=== PATIENT | male | born 1945 | race Two or more races ===

== ENCOUNTER 2016-06-05 09:23 | Inpatient (IN) | payer OTHER, MEDICAID ==
[~2016-06-05] VITALS: Ht 162.6 cm; Wt 54.4 kg
[~2016-06-05 09:23] MED LIST: ACETAZOLAMIDE250 MG ORAL; ADVAIR 250-501 EACH INH; DALIRESP500 MCG PO; DILTIAZEM 24HR120 M1 ORAL; LORATADINE10 M2 PO; MEGACE40 MG PO; PROAIR HFA8.5 GM INH; RANITIDINE HCL150 M2 PO; SPIRIVA18 MCG INH
[2016-06-05] MEDS ORDERED: Solu-MEDROL 125mg Inj IVP ONE (09:30)
[2016-06-05 09:34] VITALS: BP 141/85
[2016-06-05] MEDS: Ipratropium 0.02% Inh Soln 2.5ml UD HHN SCH ×3 (09:40→10:00)
[2016-06-05] MEDS: Albuterol ud Inhalation HHN SCH ×3 (09:40→10:00)
[2016-06-05 10:01] LABS: BASOPHILS % (AUTO) 1.1 % (0.0-2.0); EOSINOPHILS % (AUTO) 4.1 % (0.0-3.0); LYMPHOCYTES % (AUTO) 30.2 % (20.0-45.0); MEAN CORPUSCULAR HEMOGLOBIN 27.8 PG (27.0-31.0); MEAN CORPUSCULAR HGB CONC 31.4 G/DL (32.0-36.0); MEAN CORPUSCULAR VOLUME 89 FL (80-99); MEAN PLATELET VOLUME 8.3 FL (6.5-10.1); MONOCYTES % (AUTO) 6.9 % (1.0-10.0); NEUTROPHILS % (AUTO) 57.7 % (45.0-75.0); PLATELET COUNT 374 K/UL (150-450); RED CELL DISTRIBUTION WIDTH 13.6 % (11.6-14.8); WHITE BLOOD COUNT 11.3 K/UL (4.8-10.8)
[2016-06-05 10:14] LABS: ALANINE AMINOTRANSFERASE 17 U/L (3-41); ALBUMIN/GLOBULIN RATIO 1.3 (1.0-2.7); ANION GAP 17 (5-15); ASPARTATE AMINO TRANSFERASE 18 U/L (5-40); CALCIUM 9.7 mg/dL (8.6-10.2); CARBON DIOXIDE 25 mEQ/L (20-30); CHLORIDE 100 mEQ/L (98-107); CREATININE 0.8 mg/dL (0.7-1.2); HEMOLYSIS 4; POTASSIUM 3.9 mEQ/L (3.4-4.9); SODIUM 142 mEQ/L (135-145); TOTAL PROTEIN 7.7 g/dL (6.6-8.7)
[2016-06-05 10:14] LABS: ABG ALLEN TEST POSITIVE; ABG BASE EXCESS -6.9; ABG PCO2 47.8 mmHg (35.0-45.0)
--- NOTE | 2016-06-05 10:22 | Diagnostic Imaging Report ---
Indication: Dyspnea Comparison: None A single view chest radiograph was obtained. Findings: Lungs are hyperexpanded. There is no infiltrate. Heart size normal. Bones are slightly osteopenic. Impression: COPD
[2016-06-05 10:29] VITALS: BP 164/82
[2016-06-05 10:35] LABS: TROPONIN I < 0.30 ng/mL (<=0.30)
[2016-06-05 10:45] LABS: CKMB 3.7 ng/mL (< 6.7)
[2016-06-05] MEDS ORDERED: Azithromycin 500 MG in NS 275 ML IV ONE (11:00)
[2016-06-05] MEDS ORDERED: Cefepime HCl 1 GM in NS 55 ML IV ONE (11:00)
[2016-06-05] MEDS ORDERED: Azithromycin Inj IV ONE (11:06)
[2016-06-05] MEDS ORDERED: Tubing IV Cassette IV ONE (11:07)
[2016-06-05] MEDS ORDERED: NS 275 ML ONE (11:07)
[2016-06-05] MEDS ORDERED: Cefepime 1gm vial ONE (11:07)
[2016-06-05] MEDS ORDERED: NS 55 ML IV ONE (11:07)
[2016-06-05 12:00] VITALS: BP 133/74
--- NOTE | 2016-06-05 13:26 | Emergency Room Report ---
History of Present Illness General Chief Complaint: Dyspnea/Respdistress Source: Patient, Family Member, EMS Present Illness HPI 70-year-old male presents to ED for shortness of breath. Per EMS patient had worsening shortness of breath today. Patient has history of COPD and lung cancer. Patient was saturating in the ED some remainder. Given breathing treatments. Upon arrival EMS states that patient is improved but however still retracting and wheezing. Patient states he's been intubated in the past. Denies any chest pain. Denies fevers or chills. No other aggravating or relieving factors. Denies any other associated symptom Allergies: Coded Allergies: No Known Allergies (Unverified , 06/05/16) Patient History Past Medical History: asthma Past Surgical History: none Pertinent Family History: none Social History: Denies: alcohol use, drug use, smoking Immunizations: UTD Reviewed Nursing Documentation: PMH: Agreed, PSxH: Agreed Nursing Documentation-PMH Past Medical History: No History, Except For Hx Cardiac Problems: No Hx Asthma: Yes Hx Cancer: No Hx Gastrointestinal Problems: No Hx Neurological Problems: No Review of Systems All Other Systems: negative except mentioned in HPI Physical Exam Vital Signs Date Time Temp Pulse Resp B/P Pulse Ox O2 Delivery O2 Flow Rate FiO2 06/05/16 09:16 97.9 106 35 154/88 100 Simple Mask 8.0 06/05/16 09:25 100 Sp02 EP Interpretation: reviewed, normal General Appearance: GCS 15, cachetic, thin Head: normocephalic Eyes: bilateral eye PERRL, bilateral eye normal inspection ENT: hearing grossly normal, normal pharynx, no angioedema, normal voice Neck: full range of motion, supple/symm/no masses Respiratory: respiratory distress, accessory muscle use, crackles, wheezing Cardiovascular #1: regular rate, rhythm, no edema Gastrointestinal: normal inspection Rectal: deferred Genitourinary: no CVA tenderness Musculoskeletal: normal inspection Neurologic: alert, oriented x3, responsive, motor strength/tone normal, sensory intact, speech normal Psychiatric: normal inspection Skin: normal inspection Lymphatic: normal inspection Procedures Critical Care Time Critical Care Time i. I feel this is a highly complex case requiring extensive working including EKG/Rhythm strip, Xray/CT/US, Blood/urine lab work, repeat exams while in ED, and administration of strong opiates/narcotics for pain control, admission to hospital or close patient follow up. Total time: 30 min bedside evaluation and treatment excludes procedures (EKG). Reason for critical care: Respiratory distress, hypoxic, wheezing Possible complications: hypotension, hypertension, PA, shock, arrhythmias, metabolic acidosis, end organ damage, respiratory failure. Interventions: Labs, IV fluids, EKG, chest x-ray, nebulizer treatment, BiPAP, steroids, antibiotics Course: Patient brought in respiratory distress. Hypoxia, remainder. History of COPD and lung cancer. Intubated in the past. Started on BiPAP with symptoms slowly improving. Labs show respiratory acidosis. Troponins okay, lactate okay. Antibiotics given. Consultations: nursing staff, EMS, family Performed by: Dr Serra Tolerated well condition = serious j. because of unstable vital signs this patient had a condition that could potentially threaten life or limb. I feel this is a critical patient who required my full attention while patient was considered critical. Total Critical Care Time excluding procedures was greater than 35 minutes Medical Decision Making Diagnostic Impression: Primary Impression: Respiratory distress Additional Impression: COPD exacerbation ER Course Hospital Course 70-year-old M presenting to ED with SOB. h/o COPD Differential diagnoses include: Pneumonia, CHF exacerbation, pneumothorax, fluid overload Clinical course Patient placed on stretcher. On signal helper with stable vitals. After initial history and physical, I ordered nebulizer treatments, BIPAP. I ordered labs, IV fluids, EKG, chest x-ray, blood cultures, UA. Labs - noted leukocytosis, hemoglobin/hematocrit stable, electrolytes okay, lactate okay, troponins negative ABG - acidosis, hypercapnia CXR - hyperinflated lungs. no infiltrates abx given Case discussed with Dr. Alexander (covering for [facility]) and he agreed to the patient to his service for further care and support I feel this is a highly complex case requiring extensive working including EKG/ Rhythm strip, Xray/CT/US, Blood/urine lab work, repeat exams while in ED, and administration of strong opiates/narcotics for pain control, admission to hospital or close patient follow up. Diagnosis - COPD exacerbation, respiratory distress Patient admitted to [facility] in serious condition Labs Test 06/05/16 09:27 06/05/16 09:55 White Blood Count 11.3 K/UL (4.8-10.8) Red Blood Count 5.50 M/UL (4.70-6.10) Hemoglobin 15.3 G/DL (14.2-18.0) Hematocrit 48.6 % (42.0-52.0) Mean Corpuscular Volume 89 FL (80-99) Mean Corpuscular Hemoglobin 27.8 PG (27.0-31.0) Mean Corpuscular Hemoglobin Concent 31.4 G/DL (32.0-36.0) Red Cell Distribution Width 13.6 % (11.6-14.8) Platelet Count 374 K/UL (150-450) Mean Platelet Volume 8.3 FL (6.5-10.1) Neutrophils (%) (Auto) 57.7 % (45.0-75.0) Lymphocytes (%) (Auto) 30.2 % (20.0-45.0) Monocytes (%) (Auto) 6.9 % (1.0-10.0) Eosinophils (%) (Auto) 4.1 % (0.0-3.0) Basophils (%) (Auto) 1.1 % (0.0-2.0) Sodium Level 142 mEQ/L (135-145) Potassium Level 3.9 mEQ/L (3.4-4.9) Chloride Level 100 mEQ/L (98-107) Carbon Dioxide Level 25 mEQ/L (20-30) Anion Gap 17 (5-15) Blood Urea Nitrogen 14 mg/dL (7-23) Creatinine 0.8 mg/dL (0.7-1.2) Estimat Glomerular Filtration Rate mL/min (>60) Glucose Level 110 mg/dL (74-106) Lactic Acid Level 0.90 mmol/L (0.66-2.22) Calcium Level 9.7 mg/dL (8.6-10.2) Total Bilirubin 0.4 mg/dL (0.0-1.2) Aspartate Amino Transf (AST/SGOT) 18 U/L (5-40) Alanine Aminotransferase (ALT/SGPT) 17 U/L (3-41) Alkaline Phosphatase 121 U/L (40-129) Total Creatine Kinase 68 U/L (38-174) Creatine Kinase MB 3.7 ng/mL (< 6.7) Creatine Kinase MB Relative Index 5.4 Troponin I < 0.30 ng/mL (<=0.30) Pro-B-Type Natriuretic Peptide 57 pg/mL (0-125) Total Protein 7.7 g/dL (6.6-8.7) Albumin 4.4 g/dL (3.5-5.2) Globulin 3.3 g/dL Albumin/Globulin Ratio 1.3 (1.0-2.7) Arterial Blood pH 7.248 (7.350-7.450) Arterial Blood Partial Pressure CO2 47.8 mmHg (35.0-45.0) Arterial Blood Partial Pressure O2 571.6 mmHg (75.0-100.0) Arterial Blood HCO3 20.4 mmol/L (22.0-26.0) Arterial Blood Oxygen Saturation 99.6 % (92.0-98.0) Arterial Blood Base Excess -6.9 Mike Test Positive EKG Diagnostic Results Rate: tachycardiac Rhythm: NSR ST Segments: no acute changes ASA given to the pt in ED: No Rhythm Strip Diag. Results EP Interpretation: yes Rhythm: NSR, no PVC's, no ectopy Chest X-Ray Diagnostic Results EP Interpretation: No Findings: no consolidation, no effusion, no pneumothorax, no acute cardiopulmonary disease, other - hyperinflated lungs. copd Number of Views: 1 Last Vital Signs Date Time Temp Pulse Resp B/P Pulse Ox O2 Delivery O2 Flow Rate FiO2 06/05/16 12:00 97.3 105 19 133/74 96 Room Air 06/05/16 11:20 8.0 30 Status: improved Disposition: ADMITTED INPATIENT Condition: Serious Referrals: NON PHYSICIAN (PCP) АННА SERRA M.D. Jun 05, 2016 13:26
[2016-06-05 16:00] VITALS: BP 126/70
[2016-06-05] MEDS ORDERED: Milk of Magnesia 30ml Ud ORAL PRN (16:45)
[2016-06-05] MEDS ORDERED: Albuterol 90mcg Inhaler 8gm INH PRN (17:18)
[2016-06-05 17:38] LABS: ABG ALLEN TEST POSITIVE; ABG PCO2 43.2 mmHg (35.0-45.0)
[2016-06-05] MEDS ORDERED: NovoLOG Insulin Flexpen SUBQ SCH (18:00)
[2016-06-05] MEDS: cefTRIAXone 1 GM in D5W 55 ML IVPB SCH (18:32)
[2016-06-05 19:00] VITALS: BP 145/89
[2016-06-05] MEDS: Advair 250/50 Inhaler - 14 dose INH SCH (21:00)
[2016-06-05] MEDS: Solu-MEDROL 40mg Inj IVP SCH (22:08)
[2016-06-06] VITALS: BP 118/64
--- NOTE | 2016-06-06 00:38 | History and Physical Report ---
DATE OF ADMISSION: 06/05/2016 CHIEF COMPLAINT AND REASON FOR HOSPITALIZATION: The patient admitted with shortness of breath, weakness, and neck pain. HISTORY OF PRESENT ILLNESS: The patient has chronic obstructive pulmonary disease and a history of lung cancer. Lung cancer was diagnosed apparently in [facility] and he has received some chemotherapy. The patient is complaining of neck pain, came to the emergency room, note to be quite dyspneic and required nebulizer treatment and initial BiPAP in the emergency room and subsequently transferred to the telemetry unit due to his hypoxemia and dyspnea. The patient is thin and weak. He now states his breathing has improved and close to baseline and is complaining of neck pain. PAST SURGICAL HISTORY: He had a left neck mass and some kind of tumor in February of 1995 without recurrence. He has had apparently lung biopsy. ALLERGIES: None known. MEDICATIONS: Proventil inhaler as needed, Advair one puff twice a day, diltiazem 120 mg daily, loratadine 10 mg daily, ranitidine 150 daily, Daliresp 500 mg daily, Megace 40 mg daily, and acetazolamide 125 mg daily. HABITS: He smoked, quit more than 20 years ago. No alcohol or drugs. SOCIAL HISTORY: He is single. Apparently lives alone. SYSTEM REVIEW: HEENT: Head, eyes, ears, nose, and throat, vision and hearing is good. ENDOCRINE: No known diabetes or thyroid disease. PULMONARY: History of chronic obstructive pulmonary disease. CARDIAC: Denies angina or [place]. GI: No nausea, vomiting, or abdominal pain. GENITOURINARY: No dysuria, hematuria, or kidney stones. NEUROLOGIC: No CVA, syncope, or seizures. Code status is No Code. PHYSICAL EXAMINATION: GENERAL: The patient is seen after he is from BiPAP. He is alert and oriented. He is very thin and chronically ill appearing. VITAL SIGNS: Temperature 98.4, pulse 100, respirations 20, blood pressure 145/89, and pulse oximetry is 95% on room air. HEENT: Head, eyes, ears, nose, and throat, clear. Ocular motions intact in all directions. Oral mucosa is moist. NECK: There are scars from prior surgery in the left submandibular and left anterior cervical area without any masses. LUNGS: Distant breath sounds. Few faint rhonchi. HEART: Regular rhythm. Tachycardic. No murmur. ABDOMEN: Soft. No organomegaly. EXTREMITIES: No edema, cyanosis, or clubbing. There is some muscle atrophy, generalized. NEUROLOGIC: Alert and oriented. Cranial nerves are intact. IMPRESSION: 1. Chronic obstructive pulmonary disease with acute exacerbation. 2. History of lung cancer, status post chemotherapy. Chest x-ray shows hyperexpanded lungs, no infiltrate, heart size is normal. 3. Neck pain. He has good range of motion. been fairly comfortable at this time. PLAN: The patient was on steroids, empiric antibiotics, respiratory therapy, comfort measures. We will try to keep him off BiPAP if able. Watch him closely if he has any comorbidities. Helio Alexander M.D. DR: GENESIS JOB#: [id number] CC:
[2016-06-06 04:00] VITALS: BP 125/73
[2016-06-06] MEDS: NovoLOG Insulin Flexpen SUBQ SCH ×4 (05:38→20:46)
[2016-06-06] MEDS: Solu-MEDROL 40mg Inj IVP SCH ×3 (05:38→21:37)
[2016-06-06 08:00] VITALS: BP 142/72
[2016-06-06] MEDS: Advair 250/50 Inhaler - 14 dose INH SCH ×2 (09:46→21:00)
[2016-06-06] MEDS: Diltiazem CD 120mg cap ORAL SCH (09:47)
[2016-06-06] MEDS: Azithromycin 250mg tab ORAL SCH (09:47)
[2016-06-06] MEDS: acetaZOLAMIDE 125mg tab ORAL SCH (09:47)
[2016-06-06] MEDS: Heparin 5000 units/ml inj SUBQ SCH ×2 (09:49→20:46)
[2016-06-06] MEDS ORDERED: NovoLOG Insulin Flexpen SUBQ SCH ×2 (11:30→18:00)
[2016-06-06 12:00] VITALS: BP 122/69
--- NOTE | 2016-06-06 15:40 | Consultation ---
Consult Note Consult Note DATE OF CONSULTATION: 06/06/2016 REASON FOR CONSULTATION: Shortness of breath. HISTORY OF PRESENT ILLNESS: The patient has chronic obstructive pulmonary disease and a history of lung cancer. Lung cancer was diagnosed apparently in [facility] and he has received some chemotherapy. The patient is complaining of neck pain, came to the emergency room, note to be quite dyspneic and required nebulizer treatment and initial BiPAP in the emergency room and subsequently transferred to the telemetry unit due to his hypoxemia and dyspnea. The patient is thin and weak. He now states his breathing has improved and close to baseline and is complaining of neck pain. PAST SURGICAL HISTORY: He had a left neck mass . He has had apparently lung biopsy. ALLERGIES: None known. MEDICATIONS: Proventil inhaler as needed, Advair one puff twice a day, diltiazem 120 mg daily, loratadine 10 mg daily, ranitidine 150 daily, Daliresp 500 mg daily, Megace 40 mg daily, and acetazolamide 125 mg daily. HABITS: He smoked, quit more than 20 years ago. No alcohol or drugs. SOCIAL HISTORY: He is single. Apparently lives alone. SYSTEM REVIEW: HEENT: Head, eyes, ears, nose, and throat, vision and hearing is good. ENDOCRINE: No known diabetes or thyroid disease. PULMONARY: History of chronic obstructive pulmonary disease. CARDIAC: Denies angina or PR. GI: No nausea, vomiting, or abdominal pain. GENITOURINARY: No dysuria, hematuria, or kidney stones. NEUROLOGIC: No CVA, syncope, or seizures. Code status is No Code. PHYSICAL EXAMINATION: GENERAL: He is alert and oriented. He is very thin and chronically ill appearing. VITAL SIGNS: Temperature 98.4, pulse 100, respirations 20, blood pressure 145/89, and pulse oximetry is 95% on room air. HEENT: Head, eyes, ears, nose, and throat, clear. Ocular motions intact in all directions. Oral mucosa is moist. NECK: There are scars from prior surgery in the left submandibular and left anterior cervical area without any masses. LUNGS: Distant breath sounds. Few faint rhonchi. HEART: Regular rhythm. Tachycardic. No murmur. ABDOMEN: Soft. No organomegaly. EXTREMITIES: No edema, cyanosis, or clubbing. There is some muscle atrophy, generalized. NEUROLOGIC: Alert and oriented. Cranial nerves are intact. Assessment/Plan IMPRESSION: 1. Chronic obstructive pulmonary disease with acute exacerbation. 2. History of lung cancer, status post chemotherapy. Chest x-ray shows hyperexpanded lungs, no infiltrate, heart size is normal. 3. Neck pain. He has good range of motion. PLAN: The patient is on steroids, empiric antibiotics, respiratory therapy, comfort measures. Likely dc home on steroids (5mg prednisone) albuterol and pain medications Chase Dunham M.D., MD Jun 06, 2016 15:39
[2016-06-06 16:00] VITALS: BP 128/73
[2016-06-06] MEDS: cefTRIAXone 1 GM in D5W 55 ML IVPB SCH (17:30)
--- NOTE | 2016-06-06 17:34 | General Progress Note ---
Assessment/Plan Problem List: (1) Pinched nerve in neck ICD Codes: G58.8 - Other specified mononeuropathies SNOMED: 52386240 (2) Lung cancer ICD Codes: C34.90 - Malignant neoplasm of unspecified part of unspecified bronchus or lung SNOMED: 194851794 (3) COPD exacerbation ICD Codes: J44.1 - Chronic obstructive pulmonary disease with (acute) exacerbation SNOMED: 329274083, 087627347 (4) Respiratory distress ICD Codes: R06.00 - Dyspnea, unspecified SNOMED: 334610631 Assessment/Plan continue steroids hhn comfort measures. Too weak to go home today Subjective Constitutional: Reports: weakness HEENT: Reports: no symptoms Cardiovascular: Reports: no symptoms Respiratory: Reports: cough, shortness of breath Gastrointestinal/Abdominal: Reports: no symptoms Genitourinary: Reports: no symptoms Neurologic/Psychiatric: Reports: no symptoms Endocrine: Reports: no symptoms Hematologic/Lymphatic: Reports: no symptoms Allergies: Coded Allergies: No Known Allergies (Unverified , 06/05/16) Subjective mild neck pain Objective Last 24 Hour Vital Signs Date Time Temp Pulse Resp B/P Pulse Ox O2 Delivery O2 Flow Rate FiO2 06/06/16 16:00 97.9 98 18 128/73 95 Room Air 06/06/16 12:00 97.8 101 18 122/69 97 Room Air 06/06/16 09:48 103 20 97 Room Air 06/06/16 09:47 103 142/72 06/06/16 09:45 103 20 97 Room Air 30 06/06/16 08:00 87 06/06/16 08:00 98.1 103 19 142/72 96 Room Air 06/06/16 04:00 96 06/06/16 04:00 98.4 103 24 125/73 94 Room Air 06/06/16 00:00 104 06/06/16 00:00 97.3 101 20 118/64 100 Room Air 06/05/16 21:25 109 18 97 Room Air 21 06/05/16 21:24 107 20 97 Room Air 30 06/05/16 20:00 111 06/05/16 19:00 98.4 100 20 145/89 95 Room Air Intake and Output 06/05/16 06/06/16 19:00 07:00 Intake Total 1000 ml 240 ml Balance 1000 ml 240 ml Intake Oral 0 ml 240 ml IV Total 1000 ml # Voids 5 Height (Feet): 5 Height (Inches): 4.00 Weight (Pounds): 120 General Appearance: mild distress, thin EENT: PERRL/EOMI Neck: supple Cardiovascular: normal rate, regular rhythm Respiratory/Chest: decreased breath sounds, accessory muscle use, rhonchi - bilaterally Abdomen: no organomegaly Edema: no edema noted Arm (L), no edema noted Arm (R), no edema noted Leg (L), no edema noted Leg (R), no edema noted Pedal (L), no edema noted Pedal (R), no edema noted Generalized Neurologic: radiological technician II-XII grossly normal EMI ALEXANDRE Jun 06, 2016 17:34
[2016-06-06 20:00] VITALS: BP 136/81
[2016-06-07] VITALS: BP 130/78
[2016-06-07 04:00] VITALS: BP 135/80
[2016-06-07] MEDS: Solu-MEDROL 40mg Inj IVP SCH ×2 (05:55→14:23)
[2016-06-07] MEDS: NovoLOG Insulin Flexpen SUBQ SCH ×3 (05:57→16:05)
[2016-06-07 08:00] VITALS: BP 128/74
[2016-06-07] MEDS: Advair 250/50 Inhaler - 14 dose INH SCH ×2 (08:55→18:46)
[2016-06-07] MEDS: Azithromycin 250mg tab ORAL SCH (09:39)
[2016-06-07] MEDS: Diltiazem CD 120mg cap ORAL SCH (09:39)
[2016-06-07] MEDS: acetaZOLAMIDE 125mg tab ORAL SCH (09:39)
[2016-06-07] MEDS: Heparin 5000 units/ml inj SUBQ SCH (09:45)
--- NOTE | 2016-06-07 11:34 | Pulmonology Progress Note ---
Assessment/Plan Assessment/Plan 1. Chronic obstructive pulmonary disease with acute exacerbation. 2. History of lung cancer, status post chemotherapy. Chest x-ray shows hyperexpanded lungs, no infiltrate, heart size is normal. 3. Neck pain. PLAN: Agree with dc plans on steroids (5mg prednisone) albuterol and pain medications Subjective Interval Events: Saturating well on RA Constitutional: Reports: no symptoms HEENT: Repors: no symptoms Respiratory: Reports: dry cough, shortness of breath Cardiovascular: Reports: no symptoms Gastrointestinal/Abdominal: Reports: no symptoms Allergies: Coded Allergies: No Known Allergies (Unverified , 06/05/16) Objective Last 24 Hour Vital Signs Date Time Temp Pulse Resp B/P Pulse Ox O2 Delivery O2 Flow Rate FiO2 06/07/16 09:39 96 128/74 06/07/16 08:56 96 20 96 Room Air 21 06/07/16 08:55 100 20 95 Room Air 21 06/07/16 08:00 97.2 95 20 128/74 94 Room Air 06/07/16 08:00 101 06/07/16 06:00 88 06/07/16 04:00 94 06/07/16 04:00 97.1 87 20 135/80 94 Room Air 06/07/16 00:00 97.7 92 18 130/78 92 Room Air 06/07/16 00:00 97 06/06/16 21:43 98 20 97 Room Air 21 06/06/16 21:43 98 20 97 Room Air 21 06/06/16 20:00 97 06/06/16 20:00 98.1 91 20 136/81 95 Room Air 06/06/16 16:00 97.9 98 18 128/73 95 Room Air 06/06/16 16:00 97 06/06/16 12:00 97.8 101 18 122/69 97 Room Air Intake and Output 06/06/16 06/07/16 19:00 07:00 Intake Total 515 ml Balance 515 ml Intake Oral 460 ml IV Total 55 ml # Voids 9 General Appearance: no acute distress HEENT: normocephalic Respiratory/Chest: chest wall non-tender, lungs clear Cardiovascular: normal peripheral pulses, normal rate Abdomen: normal bowel sounds Microbiology Date/Time Source Procedure Growth Status 06/05/16 09:27 Blood Blood Culture - Preliminary NO GROWTH AFTER 24 HOURS Resulted 06/05/16 09:27 Blood Blood Culture - Preliminary NO GROWTH AFTER 24 HOURS Resulted 06/05/16 09:27 Nasal Nares Influenza Types A,B Antigen (DRAKE) - Final Complete 06/05/16 09:15 Nasal Not Otherwise Specified MRSA Culture - Final NO METHICILLIN RESISTANT STAPH AUREUS... Complete 06/05/16 09:15 Rectum VRE Culture - Final NO VANCOMYCIN RESISTANT ENTEROCOCCUS ... Complete Current Medications Medications (Trade) Dose Ordered Sig/Reymundo Route PRN Reason Start Time Stop Time Status Last Admin Dose Admin Acetaminophen (Tylenol) 650 mg Q4H PRN ORAL Mild Pain/Temp > 100.5 06/05/16 16:45 07/05/16 16:44 06/06/16 01:57 Acetazolamide (Diamox) 125 mg DAILY ORAL 06/06/16 09:00 07/06/16 08:59 06/07/16 09:39 Albuterol Sulfate (Proventil MDI) 1 puff Q4H PRN INH Shortness of Breath 06/05/16 17:18 07/05/16 17:17 06/07/16 08:55 Azithromycin (Zithromax) 250 mg DAILY ORAL 06/06/16 09:00 06/13/16 08:59 06/07/16 09:39 Ceftriaxone Sodium/Dextrose (Rocephin/D5W) 55 ml @ 110 mls/hr Q24H IVPB 06/05/16 18:00 06/12/16 17:59 06/06/16 17:30 Dextrose (Dextrose 50%) STAT PRN IV Hypoglycemia 06/05/16 16:45 07/05/16 16:44 Diltiazem HCl (Cardizem CD) 120 mg DAILY ORAL 06/06/16 09:00 07/06/16 08:59 06/07/16 09:39 Heparin Sodium (Porcine) (Heparin 5000 units/ml) 5,000 units EVERY 12 HOURS SUBQ 06/06/16 09:00 07/06/16 08:59 06/07/16 09:45 Insulin Aspart (NovoLOG) AC+HS SUBQ 06/06/16 17:00 07/06/16 16:59 06/07/16 05:57 Lidocaine (Lidoderm 5% PATCH) 1 patch DAILY TDERMAL 06/06/16 09:00 07/06/16 08:59 06/07/16 09:40 Magnesium Hydroxide (Mom) 30 ml DAILYPRN PRN ORAL Constipation 06/05/16 16:45 07/05/16 16:44 Megestrol Acetate (Megace) 40 mg DAILY ORAL 06/06/16 09:00 06/11/16 08:59 06/07/16 09:39 Methylprednisolone Sodium Succinate (Solu-MEDROL) 40 mg EVERY 8 HOURS IVP 06/05/16 22:00 07/05/16 21:59 06/07/16 05:55 Ranitidine HCl (Zantac) 150 mg DAILY ORAL 06/06/16 09:00 07/06/16 08:59 06/07/16 09:39 Salmeterol Xinafoate/ Fluticasone (Advair 250/50 Diskus) 1 puffs EVERY 12 HOURS INH 06/05/16 21:00 07/05/16 20:59 06/07/16 08:55 Tiotropium [place] (Spiriva Inhaler) 1 puff DAILY INH 06/06/16 09:00 07/06/16 08:59 06/07/16 08:55 Chase Yadav MD Jun 07, 2016 11:34
[2016-06-07 12:00] VITALS: BP 134/70
[2016-06-07] MEDS ORDERED: PREDNISONE5 M4 PO (12:49)
[2016-06-07 16:00] VITALS: BP 141/72
[2016-06-07] MEDS: cefTRIAXone 1 GM in D5W 55 ML IVPB SCH (18:28)
[2016-06-07] MEDS ORDERED: Tubing IV Secondary IV ONE (19:14)
--- NOTE | 2016-06-08 04:28 | Discharge Summary ---
DATE OF ADMISSION: 06/05/2016 DATE OF DISCHARGE: 06/07/2016 PERTINENT HISTORY: The patient has chronic obstructive pulmonary disease and lung cancer. He presents with respiratory distress. He is also complaining of neck pain. He was given BiPAP initially in the emergency room after initial steroids and nebulizer treatments. PERTINENT PHYSICAL FINDINGS: GENERAL: On my exam, he is alert, thin and weak. HEAD, EYES, EARS, NOSE AND THROAT: Unremarkable. NECK: There are scars from prior surgery in the left submandibular and left anterior cervical area. No masses. He has good range of motion. BACK: Mild kyphosis. LUNGS: Distant breath sounds. Few rhonchi. HEART: Regular rhythm. ABDOMEN: Soft without organomegaly. EXTREMITIES: No edema. COURSE IN THE HOSPITAL: He was admitted with respiratory distress, which improved with nebulizers, steroids and short course of empiric antibiotics. There was a history of lung cancer and prior chemotherapy. No infiltrates or masses seen on the chest x-ray. He continued on steroids and nebulizer treatment and has improved. His blood gas improved and he was stable off of oxygen back to baseline. He had neck pain which is nonspecific likely due to osteoarthritis, kyphosis and symptomatic care. He was instructed on medications and discharged home in improved condition. FINAL DIAGNOSES: 1. Chronic obstructive pulmonary disease with acute exacerbation. 2. History of lung cancer. 3. Hypoxemia and respiratory failure on admission. 4. Neck pain likely due to osteoarthritis and cervical spine disease. DISCHARGE DISPOSITION: He is discharged home on a regular diet. DISCHARGE MEDICATIONS: Per the discharge medication list. FOLLOWUP: He will follow up with his primary care provider who is not on staff at [facility]. Helio Alexander M.D. DR: GINA JOB#: [id number] CC:
--- NOTE | 2016-06-25 14:31 | Cardiology Report ---
APPROVED REPORT EKG Measurement Heart [id number] N[address] and T wave abnormality Abnormal ECG
== END 2016-06-07 19:15 | disposition home or self-care (01) | DRG 190 ==
LOC: EDSEX 09:23 → EDBD 09:23 → EMR 09:45 → 2W 10:17 → EDBEDREQ 10:26
PROC: 5A09357 Assistance with Respiratory Ventilation, Less than 24 Consecutive Hours, Continuous Positive Airway Pressure (ICD-10-PCS; principal; 2016-06-05)
DX: J44.1 Chronic obstructive pulmonary disease with (acute) exacerbation (principal); J96.91 Respiratory failure, unspecified with hypoxia; Z85.118 Personal history of other malignant neoplasm of bronchus and lung; M47.892 Other spondylosis, cervical region; Z87.891 Personal history of nicotine dependence; M50.10 Cervical disc disorder with radiculopathy, unspecified cervical region; Z66 Do not resuscitate
CPT/HCPCS: 36415; 36600; 71010; 80053; 82550; 82553; 82803; 82962; 83605; 83880; 84484; 85025; 86710; 87040; 87070; 87081; 87205; 93005; 94640; 94664; J1815